=== PATIENT | male | born 1940 | race Caucasian/White ===

== ENCOUNTER → 2016-05-07 | Outpatient (CLI) | payer MEDICARE ==
--- NOTE | 2016-05-07 14:31 | CONS ---
DATE OF CONSULTATION: 05/07/2016 CONSULTATION/NEW PATIENT EVALUATION: A 75-year-old gentleman who had been evaluated in the [facility] for possible obstructive sleep apnea-hypopnea syndrome. HISTORY OF PRESENT ILLNESS/SLEEP-WAKE EVALUATION: SLEEP SCHEDULE: Patient's usual sleep schedule from around midnight until 6 a.m. FALLING ASLEEP: No problem with falling asleep. He has a TV set in bedroom. DURING SLEEP: He recently sleeps often in the chair because of his back problems. He snores, has episodes of stopped breathing during the sleep, witnessed by his . He wakes up with a dry mouth and nocturia. DURING THE DAY/WAKE STATE: In the morning he wakes up tired, falling asleep during the day. [place] Sleepiness Scale increased to 10. Past medical history positive for diabetes, hypertension, diabetic neuropathy, episodes of dizziness, recently pain in the fingers. PAST SURGICAL HISTORY: Spinal fusion on the level of cervical 4 to 7, carotid endarterectomy, left knee surgery, total right hip replacement. MEDICATIONS: 1. Aspirin. 2. Januvia. 3. Hyzaar. 4. Metformin. 5. Glyburide. 6. Neurontin. 7. Meclizine. 8. Singulair. 9. Simvastatin. SOCIAL HISTORY: Negative for smoking, alcohol consumption occasionally. FAMILY HISTORY: Arthritis, asthma, snoring, sleep apnea. REVIEW OF SYSTEMS: Tiredness and sleepiness during the day, snoring, pain in the back and arms. During physical exam, a gentleman without distress. BP 129/63, HR 86, RR 16. Height 5, 7. Weight 30.2. BMI 47.2. Neck 19 inches in circumference. Temperature 97.8. Oxygen saturation at room air 95%. Oropharynx, extremely low position of soft palate. Mallampati IV, slight restriction of nasal breathing. Abdomen obese. Patient walks with a cane. Sometimes has episodes of dizziness, has pain in the back. IMPRESSION: 1. Snoring, witnessed episodes of stopped breathing during sleep, extremely low position of soft palate, awakenings from sleep, sleepiness, obesity, big neck, obstructive sleep apnea-hypopnea syndrome. 2. Hypertension. 3. Diabetes mellitus. 4. History of diabetic neuropathy. 5. Pain in the fingers of right arm under elevation for them by primary care physician office. 6. Status post cervical fusion on the level of 4 to 7. 7. Back pain. 8. Status post carotid endarterectomy. 9. Episodes of dizziness. 10. Status post left knee surgery. 11. Status post total right hip replacement. PLAN: 1. Polysomnography for evaluation of patient's breathing during sleep. 2. CPAP/BiPAP titration if sleep study confirms obstructive sleep apnea-hypopnea syndrome. 3. Preferable position during sleep on the side. 4. No driving if patient feels any sleepiness. Patient is aware of civil and criminal liability for unsafe driving. 5. I will see patient for follow-up visit to explain results of the testing and following plan. Thank you very much for referring this patient for consultation. Sincerely, Slim Matute MD, PhD, FAASM. Diplomat of [place] [employer], Sleep Medicine Board by [employer] [employer] Fastener Technologist of [facility] [place]
== END | disposition home or self-care (01) ==
CPT/HCPCS: 99211

== ENCOUNTER → 2016-05-27 | Outpatient (CLI) | payer MEDICARE ==
--- NOTE | 2016-05-27 15:50 | NM ---
EXAMINATION TYPE: NM DatScan Brain SPECT DATE OF EXAM: 05/27/2016 2:55 PM COMPARISON: NONE HISTORY: Tremors per order TECHNIQUE: 10 drops of Lugol's solution was administered 1 hour prior to injection as a thyroid bloc jay agent. After the administration of 4.3 mCi I-123 Ioflupane DaTscan. Images obtained [address] injection. SPECT images of the brain were acquired with axial and coronal reconstructions. FINDINGS: There is suspected some fairly balanced striatal loss to the caudate and putaminal nuclei bilaterally as there is a weak comma shaped appearance with increased background activity suspected. This appear ance is consistent with loss of the presynaptic dopaminergic terminals. IMPRESSION: As above, this abnormal appearance is supportive of a clinical diagnosis of diffuse Lewy body disease , idiopathic Parkinson's disease, Parkinson's dementia complex, or Parkinson's syndrome. Clinical cor relation advised.
== END | disposition home or self-care (01) ==
LOC: RADNMMAIN 09:44
PROVIDERS: ATTEND Psychiatry & Neurology Neurology
DX: R25.1 Tremor, unspecified (principal)
CPT/HCPCS: 78607; A9584

== ENCOUNTER → 2016-08-06 | Outpatient (CLI) | payer MEDICARE ==
--- NOTE | 2016-08-06 12:31 | PN ---
DATE OF SERVICE: 08/06/2016 A 75-year-old gentleman who has been followed in the sleep center for treatment of severe obstructive sleep apnea-hypopnea syndrome. Recently patient had diagnostic polysomnogram and CPAP titration studies and I discussed results of sleep studies with patient in detail. He has severe sleep apnea with severe oxygen desaturation. Recently he was started on treatment with CPAP. He brought his CPAP unit with him and I checked CPAP unit. Patient does not have any problems with usage of CPAP. He feels comfortable with the mask. He sleeps better with the machine and feels better during the day. [place] Sleepiness Scale today is 10. Checking of his CPAP unit showed CPAP pressure of 16. Usage is 100% of the time and 28 out of 30 nights for more than 4 hours. Average usage of the time was 6.8 hours. ( ) regimen. Leak from the mask is 25 L per minute, that which is acceptable. Apnea-hypopnea index reading for the last month is only 1.7, which is normal. During the sleep study, at the end of the sleep study because patient continued to have some oxygen desaturation, oxygen was added. The oximetry at home while patient on CPAP showed that oxygen level was below or equal 88% for 28 seconds, which acceptable range and according to the patient, the test was done on CPAP without any oxygen supplement. MEDICATIONS: Januvia, ( ), metformin, glyburide, Neurontin, meclizine, Singulair, simvastatin. Patient also has medications for Parkinson disease now. He does not know exactly the name. During physical exam, a 75-year-old gentleman without distress. VITAL SIGNS: BP 148/64, HR 78, RR 16. Weight 301. Temp 98.1. Oxygen saturation at room air 97%. HEENT: PERRLA, EOMI. Evaluation of oropharynx showed low position of soft palate. Tremor with the finger nasal approach. Neck: Supple. No JVD. Thyroid is not palpable. LUNGS: Clear to percussion and to auscultation. Good air exchange. No wheezing or rhonchi. HEART: S1, S2 regular. No murmurs, gallops, or rubs. ABDOMEN: Soft and nontender. Bowel sounds are present. No organomegaly appreciated. EXTREMITIES: 1 to 2+ bilateral ankle edema. REGULATORY PRODUCT MANAGER: Awake, alert, and oriented x3. Cranial nerves 2 to 7 intact. There is no fasciculation or atrophy noted. No focal deficits observed. IMPRESSION: 1. Severe obstructive sleep apnea/hypopnea syndrome on full control with CPAP at 16 cm of water. Patient demonstrated close to 100% compliance with treatment, benefiting from treatment. 2. Obesity. 3. Hypertension. 4. Diabetes mellitus. 5. Diabetic neuropathy. 6. Swelling of the legs. 7. Parkinson disease. 8. Status post cervical fusion procedure. 9. Back pain. 10. Status post carotid endarterectomy. 11. History of episodes of dizziness. 12. Status post left knee surgery. 13. Status post total right hip replacement. PLAN: 1. Continue treatment with CPAP every night for the whole night. 2. Losing weight. 3. Sleep hygiene with regular time in bed for at least 8 hours. 4. No driving if feeling any sleepiness. 5. Prescription for all necessary CPAP supplies. 6. Follow-up visit in 6 months. Thank you very much for allowing me to participate in the management of your patient. Sincerely, Slim Matute MD, PhD, FAASM. Diplomat of [place] [employer], Sleep Medicine Board by [employer] [employer] Ar Manager of [facility] [place]
== END | disposition home or self-care (01) ==
LOC: SLEEP 10:55
PROVIDERS: ATTEND Internal Medicine
DX: G47.33 Obstructive sleep apnea (adult) (pediatric) (principal); E66.9 Obesity, unspecified; I10 Essential (primary) hypertension; E11.40 Type 2 diabetes mellitus with diabetic neuropathy, unspecified; M79.89 Other specified soft tissue disorders; G20 Parkinson's disease; Z98.1 Arthrodesis status; M54.9 Dorsalgia, unspecified; R42 Dizziness and giddiness; Z98.890 Other specified postprocedural states; Z96.641 Presence of right artificial hip joint; Z79.899 Other long term (current) drug therapy; Z79.84 Long term (current) use of oral hypoglycemic drugs

== ENCOUNTER → 2017-03-11 | Outpatient (CLI) | payer MEDICARE ==
--- NOTE | 2017-03-11 14:43 | PN ---
PROGRESS NOTE DATE OF SERVICE: 03/11/2017 76-year-old gentleman has been followed in the Sleep Center for treatment of obstructive sleep apnea-hypopnea syndrome. The patient successfully continued to use his CPAP equipment except has significant leak from the mask and if you put a mask tight, he has some more problems with the pressure on the face. I checked his CPAP unit. CPAP pressure is 16 cm of water. Usage is 27/30 nights more than 4 hours, average 5.9 hours. Leak is 54 L/minute. Apnea-hypopnea index reading is only 2.0, which is normal range. [place] Sleepiness Scale today is 9. MEDICATIONS: Aspirin, Januvia, Cozaar, metformin, Glyburide, Neurontin, meclizine, Singulair, simvastatin. PHYSICAL EXAM: GENERAL: gentleman without distress. VITAL SIGNS: BP 105/47, HR 80, RR 16, height 5 feet 7 inches, weight 297, BMI 46.5, temp 98.0, oxygen saturation room air 95%. HEENT : PERRLA, EOMI, evaluation of oropharynx showed low position of soft palate. NECK: Supple, no JVD. Thyroid is not palpable. LUNGS Clear to percussion and to auscultation. Good air exchange. No wheezing or rhonchi. HEART S1, S2 regular. No murmurs, gallops, or rubs. ABDOMEN: Obese. Soft and nontender. Bowel sounds are present. No organomegaly appreciated. EXTREMITIES: 1+ bilateral ankle edema. No clubbing or cyanosis. CADDY MASTER Awake, alert, and oriented X3. Cranial nerves 2 to 7 intact. There is no fasciculation or atrophy. noted. No focal deficits observed. IMPRESSION: 1. Obstructive sleep apnea-hypopnea syndrome on control with CPAP. The patient demonstrated a great compliance with treatment benefitting from treatment. 2. Leak from the mask. 3. Hypertension. 4. Diabetes mellitus. 5. Diabetic neuropathy. 6. Swelling of the legs. 7. History of Parkinson disease. 8. Status post cervical fusion. 9. Back problem. 10.Status post right hip replacement. PLAN: 1. Patient will be fitted with the air feet N10 white nasal mask. 2. Prescription for all necessary CPAP supplies including new mask, tube and filters. 3. Losing weight. 4. Sleep hygiene with regular time in bed for at least 8 hours. 5. Continue to use CPAP equipment every night for the whole night with the same level of pressure. 6. No driving if feeling sleepiness. Thank you very much for allowing me to participate in management of your patient. Sincerely, Slim Matute MD, PhD, FAASM Diplomat of [employer] [employer] [employer] Debarker Operator of [employer] [facility] [place] MMCHUCK / RENETTA: [id number] /
== END ==
LOC: SLEEP 13:31
PROVIDERS: ATTEND Internal Medicine
DX: G47.33 Obstructive sleep apnea (adult) (pediatric) (principal); I10 Essential (primary) hypertension; E11.40 Type 2 diabetes mellitus with diabetic neuropathy, unspecified; M79.89 Other specified soft tissue disorders; G20 Parkinson's disease; Z96.641 Presence of right artificial hip joint; Z98.1 Arthrodesis status; Z79.899 Other long term (current) drug therapy; Z79.82 Long term (current) use of aspirin; Z79.84 Long term (current) use of oral hypoglycemic drugs